=== PATIENT | male | born 1960 | race Caucasian/White ===

== ENCOUNTER 2021-05-10 12:00 | Emergency (ER) | payer SELFPAY ==
[2021-05-10 14:12] LABS: CORONAVIRUS COVID-19 NAA NEGATIVE (NEGATIVE); INFLUENZA A NAA NEGATIVE (NEGATIVE); INFLUENZA B NAA NEGATIVE (NEGATIVE)
--- NOTE | 2021-05-10 14:20 | EDM.PDOC ---
ED HPI GENERAL MEDICAL PROBLEM - General Chief Complaint: Cardiovascular Problem Stated Complaint: HIGH BLOOD PRESSURE/MEDICAL CLEARANCE Time Seen by Provider: 05/10/21 13:29 Source of Information: Reports: Patient History Limitations: Reports: No Limitations - History of Present Illness INITIAL COMMENTS - FREE TEXT/NARRATIVE: Presents in the custody of law enforcement from the local retirement. During intake at the retirement facility, the nurse found the patient's blood pressure was 200/100. He is currently not on any medications. Patient states that 3 or 4 years ago he was on blood pressure medications. He lost his insurance so he never went back to the doctor and did not get back on medication. He does not recall what medication he took. He has a 66-26-jzel-year smoking history. History of alcohol abuse, sober since February. He has had no symptoms such as headache, visual symptoms, dizziness, chest pain, shortness of breath or swelling in his ankles. - Related Data Allergies Allergy/AdvReac Type Severity Reaction Status Date / Time No Known Allergies Allergy Verified 05/10/21 12:53 Home Meds: Home Meds Lisinopril/Hydrochlorothiazide [Lisinopril-Hctz 20-12.5 mg Tab] 1 tab PO DAILY #12 tablet 05/10/21 [Rx] Past Medical History - Past Health History Medical/Surgical History: Denies Medical/Surgical History HEENT History: Reports: Impaired Vision Cardiovascular History: Reports: Hypertension Respiratory History: Reports: SOB Musculoskeletal History: Reports: Arthritis - Infectious Disease History Infectious Disease History: Reports: Hepatitis B, Hepatitis C, Other (See Below) Other Infectious Disease History: "They told me I could not sell blood cause I had Hepatitis C or B." Social & Family History - Family History Family Medical History: No Pertinent Family History - Tobacco Use Tobacco Use Status *Q: Heavy Tobacco User Years of Tobacco use: 40 Packs/Tins Daily: 2 - Caffeine Use Caffeine Use: Reports: Coffee - Recreational Drug Use Recreational Drug Use: No ED ROS GENERAL - Review of Systems Review Of Systems: Comprehensive ROS is negative, except as noted in HPI. ED EXAM, GENERAL - Physical Exam Exam: See Below Exam Limited By: No Limitations General Appearance: Alert, No Apparent Distress Ears: Normal External Exam Nose: Normal Inspection Throat/Mouth: Normal Inspection Head: Atraumatic, Normocephalic Neck: Normal Inspection Respiratory/Chest: No Respiratory Distress, Lungs Clear, Normal Breath Sounds Cardiovascular: Normal Peripheral Pulses, Regular Rate, Rhythm, No Murmur Extremities: Normal Inspection, No Pedal Edema Neurological: Alert, Oriented Psychiatric: Normal Affect, Normal Mood Skin Exam: Warm, Dry, Intact, Normal Color, No Rash Lymphatic: No Adenopathy Course - Vital Signs Last Recorded V/S: Last Vital Signs Temp 36.7 C 05/10/21 12:57 Pulse 84 05/10/21 13:40 Resp 20 05/10/21 12:57 BP 183/97 H 05/10/21 13:40 Pulse Ox 92 L 05/10/21 13:40 - Orders/Labs/Meds Labs: Laboratory Tests 05/10/21 Range/Units 12:55 Influenza Type A RNA NEGATIVE (NEGATIVE) Influenza Type B RNA NEGATIVE (NEGATIVE) SARS-CoV-2 RNA ([facility]) NEGATIVE (NEGATIVE) - Re-Assessments/Exams Free Text/Narrative Re-Assessment/Exam: 05/10/21 14:17 Here the patient's blood pressure came down to 184/92. It was noticed that his oxygen saturations are between 90 and 93% but the patient remains asymptomatic. 10-22-izqq-year smoking history. Departure - Departure Time of Disposition: 14:20 Disposition: Home, Self-Care 01 Condition: Good Clinical Impression: Hypertension Qualifiers: Hypertension type: primary hypertension Qualified Code(s): I10 - Essential (primary) hypertension Referrals: PCP,None [Primary Care Provider] - [facility] [Outside] [facility] [Outside] Additional Instructions: The following information is given to patients seen in the emergency department who are being discharged to home. This information is to outline your options for follow-up care. We provide all patients seen in our emergency department with a follow-up referral. The need for follow-up, as well as the timing and circumstances, are variable depending upon the specifics of your emergency department visit. If you don't have a primary care physician on staff, we will provide you with a referral. We always advise you to contact your personal physician following an emergency department visit to inform them of the circumstance of the visit and for follow-up with them and/or the need for any referrals to a consulting specialist. The emergency department will also refer you to a specialist when appropriate. This referral assures that you have the opportunity for follow-up care with a specialist. All of these measure are taken in an effort to provide you with optimal care, which includes your follow-up. Under all circumstances we always encourage you to contact your private physician who remains a resource for coordinating your care. When calling for follow-up care, please make the office aware that this follow-up is from your recent emergency room visit. If for any reason you are refused follow-up, please contact the [facility] at and asked to speak to the emergency department charge nurse. 1. Take 1 tab of your new blood pressure medication as soon as it is available today and then once daily. Rx to [facility] 2. Must make an appointment in primary care--not urgent care--as soon as you are discharged from the lockup. You have hypertension and possibly other chronic medical problems that require evaluation and treatment. Call one of the clinics listed above. 3. Stop smoking 4. Continue your sobriety Sepsis Event Note (ED) - Focused Exam Vital Signs: Vital Signs Temp Pulse Resp BP Pulse Ox 05/10/21 13:40 84 183/97 H 92 L 05/10/21 12:57 36.7 C 83 20 201/100 H 91 L
== END 2021-05-10 14:47 | disposition home or self-care (01) ==
LOC: MW.ED 12:00
DX: I10 Essential (primary) hypertension (principal); Z20.822 Contact with and (suspected) exposure to COVID-19
CPT/HCPCS: 0240U; 99283